=== PATIENT | female | born 1990 | race Caucasian/White ===

== ENCOUNTER 2017-01-27 01:55 | Emergency (ER) | payer SELFPAY ==
[2017-01-27 02:40] LABS: CALCIUM 8.4 mg/dL (8.5-10.1); CARBON DIOXIDE 22.7 mmol/L (21-32); CHLORIDE SERUM 106 mmol/L (98-107); CREATININE SERUM 0.9 mg/dL (0.6-1.0); GFR1 > 60 mL/min; GLUCOSE SERUM 127 mg/dL (74-106); POTASSIUM SERUM 3.6 mmol/L (3.5-5.1); SODIUM SERUM 139 mmol/L (136-145)
[2017-01-27 02:44] LABS: ALBUMIN 3.2 g/dL (3.4-5.0); ALKALINE PHOSPHATASE 89 U/L (46-116); ALT/SGPT 27 U/L (14-59); AMYLASE 40 U/L (25-115); AST/SGOT 27 U/L (15-37); BILIRUBIN TOTAL 0.57 mg/dL (0.20-1.00); LIPASE 164 IU/L (73-393); TOTAL PROTEIN, SERUM 6.8 g/dL (6.4-8.2)
[2017-01-27 03:33] LABS: BASOPHIL % 0.5 % (0-2); PLATELET COUNT 275 x10^3mcL (130-400); RED CELL DISTRIBUTION WIDTH 12.6 % (11.5-14.5)
[2017-01-27 06:19] VITALS: BP 132/66
== END 2017-01-27 06:19 | disposition home or self-care (01) ==
LOC: ED 01:55
PROVIDERS: Emergency Medicine
DX: R10.13 Epigastric pain (principal); R11.0 Nausea; Z90.49 Acquired absence of other specified parts of digestive tract
CPT/HCPCS: 83880; J2270; J2405; J7030

== ENCOUNTER 2017-01-31 15:22 | Inpatient (IN) | payer MEDICAID ==
[~2017-01-31] VITALS: Ht 170.2 cm; Wt 125.4 kg
[2017-01-31 18:34] LABS: PLATELET COUNT 286 x10^3mcL (130-400); RED CELL DISTRIBUTION WIDTH 12.9 % (11.5-14.5)
[2017-01-31 18:41] LABS: CALCIUM 8.6 mg/dL (8.5-10.1); CHLORIDE SERUM 103 mmol/L (98-107); CREATININE SERUM 0.9 mg/dL (0.6-1.0); GFR1 > 60 mL/min; GLUCOSE SERUM 111 mg/dL (74-106); POTASSIUM SERUM 3.4 mmol/L (3.5-5.1); SODIUM SERUM 138 mmol/L (136-145)
[2017-01-31 18:45] LABS: ALBUMIN 3.4 g/dL (3.4-5.0); ALKALINE PHOSPHATASE 190 U/L (46-116); ALT/SGPT 267 U/L (14-59); AMYLASE 36 U/L (25-115); AST/SGOT 105 U/L (15-37); BILIRUBIN TOTAL 4.9 mg/dL (0.20-1.00); LIPASE 100 IU/L (73-393); TOTAL PROTEIN, SERUM 7.2 g/dL (6.4-8.2)
[2017-01-31 21:18] VITALS: BP 107/47
[2017-01-31 21:23] VITALS: Ht 170.2 cm; Wt 125.4 kg
[2017-01-31 22:35] LABS: PHOSPHOROUS 2.7 mg/dL (2.5-4.9)
[2017-01-31 22:45] LABS: FREE T4 1.37 ng/dL (0.76-1.46); FREE THYROXINE INDEX 3.6 ug/dL (1.4-4.5); T4(THYROXINE) 9.8 ug/dL (4.7-13.3)
[2017-01-31 22:51] LABS: T3 TOTAL 0.83 ng/mL
[2017-02-01 01:35] LABS: UA SPECIFIC GRAVITY 1020 (1.005-1.035); microscopic required? YES
[2017-02-01 01:36] LABS: urine erythrocyte 3+ (NEGATIVE)
[2017-02-01 06:01] VITALS: BP 112/54
[2017-02-01 10:21] VITALS: BP 117/53
[2017-02-01 13:40] VITALS: BP 120/63
[2017-02-01 16:52] VITALS: BP 131/74
[2017-02-01 21:19] VITALS: BP 124/72
[2017-02-02 05:14] VITALS: BP 110/69
[2017-02-02 06:13] LABS: BASOPHIL % 0.4 % (0-2); PLATELET COUNT 261 x10^3mcL (130-400); RED CELL DISTRIBUTION WIDTH 12.7 % (11.5-14.5)
[2017-02-02 06:28] LABS: CALCIUM 8.3 mg/dL (8.5-10.1); CARBON DIOXIDE 25.7 mmol/L (21-32); CHLORIDE SERUM 107 mmol/L (98-107); CREATININE SERUM 0.7 mg/dL (0.6-1.0); GFR1 > 60 mL/min; GLUCOSE SERUM 83 mg/dL (74-106); POTASSIUM SERUM 4.6 mmol/L (3.5-5.1); SODIUM SERUM 142 mmol/L (136-145)
[2017-02-02 09:10] LABS: ALBUMIN 2.9 g/dL (3.4-5.0); BILIRUBIN DIRECT 2.43 mg/dL (0.0-0.2); BILIRUBIN TOTAL 3.1 mg/dL (0.20-1.00); TOTAL PROTEIN, SERUM 6.8 g/dL (6.4-8.2)
[2017-02-02 09:26] VITALS: BP 129/64
[2017-02-02] MEDS ORDERED: MAC100 PO (14:35)
[2017-02-02 15:26] VITALS: BP 129/64
== END 2017-02-02 16:36 | disposition home or self-care (01) | DRG 252 ==
LOC: ED 15:22 → DU 20:16 → MU 20:16 → DU 21:05 → MU 02-02 06:44
PROVIDERS: Emergency Medicine; Internal Medicine Gastroenterology; ADMIT Family Medicine
PROC: 0F798DZ Dilation of Common Bile Duct with Intraluminal Device, Via Natural or Artificial Opening Endoscopic (ICD-10-PCS; principal; 2017-02-01 10:45)
DX: K91.86 Retained cholelithiasis following cholecystectomy (principal); N17.0 Acute kidney failure with tubular necrosis; Z68.41 Body mass index [BMI] 40.0-44.9, adult; E66.01 Morbid (severe) obesity due to excess calories; N39.0 Urinary tract infection, site not specified; E87.6 Hypokalemia; E44.0 Moderate protein-calorie malnutrition
CPT/HCPCS: 43262; 76001; 83880; 84439; C1769; C2625; J0696; J1170; J1610; J1885; J2250; J2405; J2704; J3010; J7030; J7120; Q9967

== ENCOUNTER → 2017-03-03 | Outpatient (CLI) | payer MEDICAID ==
[~2017-03-03] MED LIST: MAC100 PO
[2017-03-03 09:36] LABS: ALBUMIN 3.4 g/dL (3.4-5.0); BILIRUBIN DIRECT 0.25 mg/dL (0.0-0.2); BILIRUBIN TOTAL 0.6 mg/dL (0.20-1.00); TOTAL PROTEIN, SERUM 7.5 g/dL (6.4-8.2)
== END | disposition home or self-care (01) ==
LOC: LB 08:56
PROVIDERS: Internal Medicine Gastroenterology
DX: K80.50 Calculus of bile duct without cholangitis or cholecystitis without obstruction (principal)

== ENCOUNTER 2017-03-17 12:23 | Inpatient (IN) | payer MEDICAID ==
[~2017-03-17] VITALS: Ht 170.2 cm; Wt 125.9 kg
[2017-03-17 14:05] LABS: BASOPHIL % 0.4 % (0-2); PLATELET COUNT 323 x10^3mcL (130-400); RED CELL DISTRIBUTION WIDTH 12.6 % (11.5-14.5)
[2017-03-17 14:10] LABS: CALCIUM 8.9 mg/dL (8.5-10.1); CARBON DIOXIDE 25.9 mmol/L (21-32); CHLORIDE SERUM 107 mmol/L (98-107); CREATININE SERUM 0.8 mg/dL (0.6-1.0); GFR1 > 60 mL/min; GLUCOSE SERUM 92 mg/dL (74-106); POTASSIUM SERUM 4.2 mmol/L (3.5-5.1); SODIUM SERUM 140 mmol/L (136-145)
[2017-03-17 14:15] LABS: ALBUMIN 3.4 g/dL (3.4-5.0); ALKALINE PHOSPHATASE 96 U/L (46-116); ALT/SGPT 30 U/L (14-59); AST/SGOT 15 U/L (15-37); BILIRUBIN TOTAL 0.5 mg/dL (0.20-1.00); LIPASE 133 IU/L (73-393); TOTAL PROTEIN, SERUM 7.4 g/dL (6.4-8.2)
[2017-03-17 17:16] LABS: T3 TOTAL 1.25 ng/mL
[2017-03-17 17:19] LABS: FREE T4 1.11 ng/dL (0.76-1.46); FREE THYROXINE INDEX 3.2 ug/dL (1.4-4.5); T4(THYROXINE) 8.9 ug/dL (4.7-13.3)
[2017-03-17 17:30] LABS: CHOLESTEROL/HDL RATIO 3.3; MAGNESIUM 2.3 mg/dL (1.8-2.4); PHOSPHOROUS 3.9 mg/dL (2.5-4.9)
[2017-03-17 20:38] VITALS: BP 104/33
[2017-03-17 22:15] VITALS: BP 104/33
[2017-03-18 06:05] VITALS: BP 100/45
[2017-03-18 09:32] VITALS: BP 108/46
[2017-03-18 13:19] VITALS: BP 106/50
[2017-03-18 16:56] VITALS: BP 107/46
[2017-03-18 21:10] VITALS: BP 93/47
[2017-03-18 22:27] LABS: microscopic required? YES; urine erythrocyte NEGATIVE (NEGATIVE)
[2017-03-18 22:41] LABS: AMPHETAMINE QUAL UR NONE DETECTED (NEG <=1000)
[2017-03-19 05:37] VITALS: BP 112/55
[2017-03-19 06:09] LABS: BASOPHIL % 0.5 % (0-2); PLATELET COUNT 253 x10^3mcL (130-400); RED CELL DISTRIBUTION WIDTH 12.3 % (11.5-14.5)
[2017-03-19 06:17] LABS: CALCIUM 8.2 mg/dL (8.5-10.1); CARBON DIOXIDE 27.7 mmol/L (21-32); CHLORIDE SERUM 109 mmol/L (98-107); CREATININE SERUM 0.7 mg/dL (0.6-1.0); GFR1 > 60 mL/min; GLUCOSE SERUM 98 mg/dL (74-106); POTASSIUM SERUM 4.3 mmol/L (3.5-5.1); SODIUM SERUM 141 mmol/L (136-145)
[2017-03-19 10:53] VITALS: BP 107/65
[2017-03-19 15:20] VITALS: BP 106/65
[2017-03-19] MEDS ORDERED: COL100 PO ×2 (16:42→17:17)
[2017-03-19] MEDS ORDERED: GOOD SENSE OMEP20 MG PO ×2 (16:44→17:17)
[2017-03-19] MEDS ORDERED: BACTRIM DS1 TAB PO (16:53)
[2017-03-19] MEDS ORDERED: LAC PO (16:54)
[2017-03-19 17:10] VITALS: BP 106/65
== END 2017-03-19 18:44 | disposition home or self-care (01) | DRG 261 ==
LOC: ED 12:23 → DU 16:04
PROVIDERS: Emergency Medicine; Internal Medicine Gastroenterology; ADMIT Family Medicine
PROC: 0FPB8DZ Removal of Intraluminal Device from Hepatobiliary Duct, Via Natural or Artificial Opening Endoscopic (ICD-10-PCS; principal; 2017-03-19 13:00)
PROC: 0F798ZZ Dilation of Common Bile Duct, Via Natural or Artificial Opening Endoscopic (ICD-10-PCS; 2017-03-19 13:00)
DX: K83.1 Obstruction of bile duct (principal); N17.0 Acute kidney failure with tubular necrosis; K76.0 Fatty (change of) liver, not elsewhere classified; E44.1 Mild protein-calorie malnutrition; E66.01 Morbid (severe) obesity due to excess calories; Z68.41 Body mass index [BMI] 40.0-44.9, adult; Z90.49 Acquired absence of other specified parts of digestive tract
CPT/HCPCS: 43260; 83880; 84439; C1769; J0295; J1610; J1885; J2175; J2250; J2270; J2704; J3010; J7030; J7120; Q0092; Q9967

== ENCOUNTER 2017-05-28 22:11 | Emergency (ER) | payer OTHER ==
[~2017-05-28 22:11] MED LIST changes: +BACTRIM DS1 TAB PO; +COL100 PO; +GOOD SENSE OMEP20 MG PO; +LAC PO
[2017-05-29 01:07] VITALS: BP 127/81
== END 2017-05-29 01:07 | disposition home or self-care (01) ==
LOC: ED 22:11
DX: S46.811A Strain of other muscles, fascia and tendons at shoulder and upper arm level, right arm, initial encounter (principal); R03.0 Elevated blood-pressure reading, without diagnosis of hypertension; X58.XXXA Exposure to other specified factors, initial encounter; Y93.89 Activity, other specified; Y92.89 Other specified places as the place of occurrence of the external cause; Y99.8 Other external cause status
CPT/HCPCS: J1885

== ENCOUNTER 2018-05-04 18:14 | Emergency (ER) | payer OTHER ==
[~2018-05-04] VITALS: Ht 170.2 cm; Wt 124.3 kg
[2018-05-04 18:19] VITALS: Ht 170.2 cm; Wt 124.3 kg
[2018-05-04 20:37] VITALS: BP 111/64
== END 2018-05-04 20:37 | disposition home or self-care (01) ==
LOC: ED 18:14
DX: R51 Headache (principal); H53.8 Other visual disturbances; R42 Dizziness and giddiness; K21.9 Gastro-esophageal reflux disease without esophagitis; Z90.49 Acquired absence of other specified parts of digestive tract
CPT/HCPCS: J0780; J1885

== ENCOUNTER 2018-07-31 19:49 | Emergency (ER) | payer OTHER ==
[~2018-07-31] VITALS: Ht 170.2 cm; Wt 126.6 kg
[2018-07-31 19:54] VITALS: Ht 170.2 cm; Wt 126.6 kg
[2018-07-31 20:59] LABS: UA SPECIFIC GRAVITY >=1.030 (1.005-1.035); microscopic required? YES; urine erythrocyte NEGATIVE (NEGATIVE)
[2018-07-31 21:00] LABS: PLATELET COUNT 314 x10^3mcL (130-400)
[2018-07-31 21:08] LABS: CALCIUM 8.4 mg/dL (8.5-10.1); CHLORIDE SERUM 107 mmol/L (98-107); CREATININE SERUM 0.8 mg/dL (0.6-1.0); GFR1 > 60 mL/min; GLUCOSE SERUM 101 mg/dL (74-106); POTASSIUM SERUM 4.3 mmol/L (3.5-5.1); SODIUM SERUM 142 mmol/L (136-145)
[2018-07-31 21:12] LABS: ALBUMIN 3.4 g/dL (3.4-5.0); ALKALINE PHOSPHATASE 107 U/L (46-116); ALT/SGPT 24 U/L (14-59); AMYLASE 53 U/L (25-115); AST/SGOT 12 U/L (15-37); BILIRUBIN TOTAL 0.33 mg/dL (0.20-1.00); LIPASE 156 IU/L (73-393); TOTAL PROTEIN, SERUM 7.6 g/dL (6.4-8.2)
[2018-07-31 22:53] VITALS: BP 119/64
== END 2018-07-31 22:53 | disposition home or self-care (01) ==
LOC: ED 19:49
PROVIDERS: Emergency Medicine
DX: N39.0 Urinary tract infection, site not specified (principal); E66.9 Obesity, unspecified; Z68.41 Body mass index [BMI] 40.0-44.9, adult; Z90.49 Acquired absence of other specified parts of digestive tract; Z98.890 Other specified postprocedural states
CPT/HCPCS: J7030

== ENCOUNTER 2019-02-19 16:27 | Emergency (ER) | payer OTHER ==
[~2019-02-19] VITALS: Ht 170.2 cm; Wt 126.1 kg
[2019-02-19 16:34] VITALS: Ht 170.2 cm; Wt 126.1 kg
[2019-02-19 19:16] VITALS: BP 157/46
== END 2019-02-19 19:16 | disposition home or self-care (01) ==
LOC: ED 16:27
DX: N60.12 Diffuse cystic mastopathy of left breast (principal); N60.11 Diffuse cystic mastopathy of right breast; K21.9 Gastro-esophageal reflux disease without esophagitis; Z90.49 Acquired absence of other specified parts of digestive tract